=== PATIENT | male | born 1980 | race Caucasian/White ===

== ENCOUNTER 2016-07-01 00:40 | Emergency (ER) | payer SELFPAY ==
[~2016-07-01] VITALS: Ht 170.2 cm; Wt 79.4 kg
[2016-07-01 00:43] VITALS: BP 132/88
--- NOTE | 2016-07-01 01:50 | NUR ---
PATIENT LEFT WITHOUT BEING SEEN BY DR. RASHID. NO FURTHER CARE PROVIDED FOR PATIENT.
--- NOTE | 2016-07-01 02:32 | NUR ---
Charly villalpando in ED - 07/01/16 at 0410 by [facility] PATIENT LEFT WITHOUT BEING SEEN BY DR. RASHID. NO FURTHER CARE PROVIDED FOR PATIENT.
== END 2016-07-01 01:50 | disposition left against medical advice (07) ==
LOC: MED 00:40
DX: M79.601 Pain in right arm (principal); Z53.21 Procedure and treatment not carried out due to patient leaving prior to being seen by health care provider